=== PATIENT | female | born 1990 | race Caucasian/White ===

== ENCOUNTER 2021-06-08 14:04 | Outpatient (CLI) | payer OTHER, SELFPAY ==
--- NOTE | ~2021-06-08 | XR_ITS ---
XR hand BI arthritis min 3V 06/08/2021 14:35 Indication: Osteoarthritis. Procedure: 4 views each hand Comparison: No prior studies for comparison. Findings: No fracture, subluxation or dislocation. No erosive changes. Normal mineralization. No foca l soft tissue abnormality. No foreign bodies. Impression: 1: No significant bone or joint abnormality. Reviewed, dictated and finalized at location A. Impression: 1: No significant bone or joint abnormality.
--- NOTE | ~2021-06-08 | XR_ITS ---
LUMBAR SPINE INDICATION: Degenerative change. Low back pain. Arthritis. TECHNIQUE: 5 views lumbar spine COMPARISON: None FINDINGS: No fracture, subluxation or dislocation. No evidence for spondylolysis or spondylolisthesi s. Vertebral bodies and disk spaces are preserved. IMPRESSION: 1: No significant abnormality of the lumbar spine identified. Reviewed, dictated and finalized at location A.
--- NOTE | ~2021-06-08 | XR_ITS ---
XR sacroiliac joints min 3V 06/08/2021 14:35 Indication: Osteoarthritis Procedure: 3 views sacroiliac joints Comparison: No prior studies for comparison. Findings: Normal anatomic alignment of the sacroiliac joints. No significant degenerative change. No erosions or ankylosis. Sacral foramen are symmetric. Impression: 1: No significant abnormality of the sacroiliac joints. Reviewed, dictated and finalized at location A. Impression: 1: No significant abnormality of the sacroiliac joints.
--- NOTE | ~2021-06-08 | XR_ITS ---
XR foot RT standing 2V, XR foot LT standing 2V 06/08/2021 14:35 Indication: Osteoarthritis. Joint pain. Procedure: 2 views of each foot Comparison: No prior studies for comparison. Findings: There is mild bilateral symmetric osteoarthritis of the first MTP joints. No fracture, subl uxation or dislocation. Lisfranc joint intact. No focal soft tissue abnormality. No foreign bodies. Impression: 1: Mild bilateral symmetric osteoarthritis of the first metatarsal-phalangeal joints. Reviewed, dictated and finalized at location A. Impression: 1: Mild bilateral symmetric osteoarthritis of the first metatarsal-phalangeal j oints. Impression: 1: Mild bilateral symmetric osteoarthritis of the first metatarsal-phalangeal j oints.
== END 2021-06-08 14:05 | disposition home or self-care (01) ==
LOC: ANHIMG 14:06
PROVIDERS: PCP Internal Medicine; Visit Provider Internal Medicine
DX: M19.90 Unspecified osteoarthritis, unspecified site (principal); R19.7 Diarrhea, unspecified; M19.072 Primary osteoarthritis, left ankle and foot; M19.071 Primary osteoarthritis, right ankle and foot
CPT/HCPCS: 72110; 72202; 73130; 73620

== ENCOUNTER → 2021-10-09 14:34 | Outpatient (CLI) | payer OTHER, SELFPAY ==
--- NOTE | ~2021-10-09 | CT_ITS ---
EXAMINATION: CT abdomen w con INDICATION: Right upper quadrant and epigastric pain TECHNIQUE: Computed tomographic images of the abdomen were obtained after the administration of 100 c c of Omnipaque 350 intravenous contrast. The dose-length product (DLP) was 239.09 mGy-cm. Automated e xposure control and iterative reconstruction technique were employed. COMPARISON: None available FINDINGS: The heart size is normal. A 2 mm nodule of the left lower lobe likely reflects old granulom atous disease. The liver, spleen, pancreas, gallbladder, and adrenal glands are normal. The kidneys a re unremarkable. There are no pathologically enlarged abdominal lymph nodes. There is no free intrape ritoneal gas or evidence of bowel obstruction. A large volume of colonic stool is present. IMPRESSION: 1. No CT correlate for the patient's symptoms. 2. Constipation. Reviewed, dictated and finalized at location A. 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
--- NOTE | ~2021-10-09 | US_ITS ---
EXAMINATION: US transvaginal DATE: 10/09/2021 15:35 INDICATION: Right lower quadrant pain, irregular menstruation, unspecified TECHNIQUE: Multiple endovaginal sonographic images of the pelvis were obtained. COMPARISON: None. FINDINGS: The uterus measures 7 x 3.8 x 4.9 cm. The endometrial complex measures 9 mm. The right ovar y measures 3.7 x 3.4 x 3 cm. The left ovary measures 2.7 x 2.1 x 2.2 cm. There is normal vascular sebastián w in the ovaries. There is no free fluid in the pelvis. IMPRESSION: 1. No sonographic correlate for the patient's symptoms. Reviewed, dictated and finalized at location A. 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
== END ==
PROVIDERS: PCP Internal Medicine; Visit Provider Obstetrics & Gynecology Gynecology
DX: N92.6 Irregular menstruation, unspecified (principal); R10.31 Right lower quadrant pain; R10.13 Epigastric pain; K59.00 Constipation, unspecified
CPT/HCPCS: 74160; 76830; Q9967

== ENCOUNTER → 2022-07-03 14:42 | Outpatient (CLI) | payer OTHER, SELFPAY ==
--- NOTE | ~2022-07-03 | MR_ITS ---
EXAMINATION: MR brain/brain stem wo/w con DATE: 07/03/2022 15:27 INDICATION: Dizziness TECHNIQUE: Magnetic resonance imaging (MRI) of the brain and brainstem was performed without and with 15 mL Multihance intravenous contrast. Sequences included sagittal and axial T1-weighted SE, axial d iffusion-weighted FS SE, axial T2*-weighted GRE, axial T2-weighted FLAIR, and axial T2-weighted FSE. Postcontrast axial and coronal T1-weighted SE was obtained. Apparent diffusion coefficient (ADC) maps were created. COMPARISON: MR dated 05/03/2015 FINDINGS: There are no areas of restricted diffusion to suggest acute infarction. No intracranial hemorrhage or abnormal intracranial mass lesion. There are no intraparenchymal signal abnormalities seen on the ot her pulse sequences. The ventricles are symmetric and normal in size. There are no abnormal extra-axi al fluid collections. Flow voids are seen in the cerebral arteries on the T2-weighted sequences consi stent with their expected patency. Visualized orbits and soft tissues are unremarkable. There are no areas of abnormal enhancement on the post contrast images. IMPRESSION: 1. Normal brain MR. Reviewed, dictated and finalized at location A. ON [place]WYER IMPRESSION: 1. Normal brain MR.
== END ==
PROVIDERS: PCP Internal Medicine; Visit Provider Internal Medicine
DX: R42 Dizziness and giddiness (principal)
CPT/HCPCS: 70553; A9577

== ENCOUNTER 2022-07-06 13:03 | Emergency (ER) | payer OTHER, SELFPAY ==
[2022-07-06 13:20] VITALS: BP 117/59; PULSE 72; RESP 18; TEMP 36.4; O2SAT 100
--- NOTE | 2022-07-06 13:57 | ED.URI ---
HPI - URI/Sore Throat General Chief Complaint: Upper Respiratory Infection Stated Complaint: Sore Throat Time Seen by Provider: 07/06/22 13:57 History of Present Illness HPI Narrative: 42-year-old female presents for complaint of sore throat, body aches, headache, and fever over the last 2 days. She endorses temperature up to 104.7 at home. She is taking Tylenol and ibuprofen for symptoms. She denies nausea, vomiting, diarrhea, shortness of breath or wheezing. Related Data Home Medications Medication Instructions Recorded Confirmed ergocalciferol (vitamin D2) 1,250 1,250 mcg PO WEEKLY 11/22/21 07/06/22 mcg (50,000 unit) capsule sumatriptan succinate 50 mg tablet 50 mg PO DIRECTED 07/06/22 07/06/22 Allergies Allergy/AdvReac Type Severity Reaction Status Date / Time amoxicillin Allergy Mild Rash Verified 07/06/22 13:35 clavulanic acid Allergy Mild Rash Verified 07/06/22 13:35 naproxen Allergy Mild n/a Verified 07/06/22 13:35 Review of Systems Review of Systems: CONSTITUTIONAL: reports body aches, fever, chills, or sweats. EYES: Denies visual changes, redness, or discharge. ENT: Denies rhinorrhea, congestion, or otalgia. CARDIOVASCULAR: Denies chest pain, palpitations, or edema. RESPIRATORY: Denies dyspnea. GASTROINTESTINAL: Denies abdominal pain, vomiting, or diarrhea. SKIN: Denies rash, itching, or wounds. MUSCULOSKELETAL: Denies back pain, joint pain, or myalgia. [facility]LY [facility] Past Medical History Medical History Constipation Diarrhea Factor 5 Leiden mutation, heterozygous Granuloma annulare Headache History of blood clots Inflammatory arthritis (~05/2021) TIA (transient ischemic attack) Family History Family History Father Depression Mother Depression Spondylarthritis Grandparent Depression Rheumatoid arthritis Diabetes mellitus Grandparent Heart disease Diabetes mellitus Social History Social History Smoking status: Never smoker Alcohol intake: current Exam Narrative: GENERAL: well-appearing, no acute distress. EYES: conjunctivae clear ENT: Mucous membranes moist. TM pearly sanchez with normal light reflex bilaterally; no tragal tenderness. Oropharynx erythematous without lesions or exudate; Tonsils absent. No drooling, no hoarseness, no trismus, uvula midline. No tripod positioning, hot potato voice, or soft palate swelling. NECK: Supple. No lymphadenopathy CHEST: Clear to auscultation, breath sounds equal. No respiratory distress, speaks in full sentences. HEART: Regular rate and rhythm. No murmur heard. SKIN: Warm, dry, no rash. NEURO: Alert and oriented x3. Course Course Emergency Course: Patient is aware of diagnosis, understands and agrees to treatment plan. Anticipatory guidance given. Patient agrees to follow-up as directed and is aware of reasons to seek care at the emergency department. Portions of this record may have been created with voice recognition software Level of Care: Express Care Visit Vital Signs Vital signs: Vital Signs Temperature 97.5 F L 07/06/22 13:20 Pulse Rate 72 07/06/22 13:20 Respiratory Rate 18 07/06/22 13:20 Blood Pressure 117/59 L 07/06/22 13:20 Pulse Oximetry 100 07/06/22 13:20 Oxygen Delivery Room Air 07/06/22 13:20 Temperature 97.5 F L 07/06/22 13:20 Pulse Rate 72 07/06/22 13:20 Respiratory Rate 18 07/06/22 13:20 Blood Pressure 117/59 L 07/06/22 13:20 Pulse Oximetry 100 07/06/22 13:20 Oxygen Delivery Room Air 07/06/22 13:20 MDM - URI/Sore Throat MDM Narrative Medical decision making narrative: Positive strep result reviewed with pt. Advise supportive treatments. Patient is appropriate for outpatient treatment and follow-up. Differential Diagnosis Differential diagnosis: Likely upper respiratory infection,
== END 2022-07-06 14:15 | disposition home or self-care (01) ==
PROVIDERS: Emergency Provider Nurse Practitioner Family; PCP Internal Medicine
DX: J02.0 Streptococcal pharyngitis (principal); D68.51 Activated protein C resistance; Z86.73 Personal history of transient ischemic attack (TIA), and cerebral infarction without residual deficits
CPT/HCPCS: 87880; 99213; G0463

== ENCOUNTER 2022-10-27 10:40 | Emergency (ER) | payer OTHER, SELFPAY ==
[2022-10-27 11:26] VITALS: BP 98/48; PULSE 75; RESP 12; TEMP 36.6; O2SAT 100
--- NOTE | 2022-10-27 12:27 | ED.URI ---
HPI - URI/Sore Throat General Chief Complaint: Upper Respiratory Infection Stated Complaint: Sore Throat/Flank Pain Time Seen by Provider: 10/27/22 12:27 Source: patient, RN notes reviewed and old records reviewed Mode of arrival: ambulatory Limitations: no limitations History of Present Illness HPI Narrative: 32-year-old female presents to the [facility] with complaints of sore throat, body aches, pain since yesterday. Patient states that her other son tested positive for strep yesterday. Denies fevers. Unable to obtain if she has taken any medications or when asked about past medical history. Patient became upset that ?she has already been asked these questions. MD elicited complaint: sore throat Related Data Home Medications Medication Instructions Recorded Confirmed ergocalciferol (vitamin D2) 1,250 1,250 mcg PO WEEKLY 11/22/21 07/06/22 mcg (50,000 unit) capsule dextroamphetamine-amphetamine 10 10/27/22 mg tablet Allergies Allergy/AdvReac Type Severity Reaction Status Date / Time amoxicillin Allergy Mild Rash Verified 10/27/22 11:59 clavulanic acid Allergy Mild Rash Verified 10/27/22 11:59 naproxen Allergy Mild n/a Verified 10/27/22 11:59 Review of Systems Review of Systems: All systems reviewed & are unremarkable except as noted in HPI and below Constitutional: Constitutional: Reports as per HPI and Reports body ache(s) Eyes: Eyes: Reports no additional eye complaints ENT: Reports as per HPI Cardiovascular: Cardiovascular: Reports no additional cardiovascular complaints, Denies chest pain and Denies dyspnea Respiratory: Respiratory: Reports no additional respiratory complaints, Denies chest congestion, Denies cough and Denies dyspnea Gastrointestinal: Gastrointestinal: Reports no additional gastrointestinal complaints, Denies abdominal pain, Denies nausea and Denies vomiting Musculoskeletal: Musculoskeletal: Reports as per HPI and Reports back pain Integumentary/Breasts: Skin/Breast: Reports system reviewed and no additional complaints, except as docu Neurologic: Reports system reviewed and no additional complaints, except as documented Psychiatric: Psychiatric: Reports no additional psychiatric complaints Allergic/Immunologic: Allergic/Immunologic: Reports no additional allergic/immunologic complaints PMFSH Past Medical History Medical History Constipation Diarrhea Factor 5 Leiden mutation, heterozygous Granuloma annulare Headache History of blood clots Inflammatory arthritis (~05/2021) TIA (transient ischemic attack) Family History Family History Father Depression Mother Depression Spondylarthritis Grandparent Depression Rheumatoid arthritis Diabetes mellitus Grandparent Heart disease Diabetes mellitus Social History Social History Smoking status: Never smoker Alcohol intake: current Comments At the time of my signature, I reviewed and agree with the nursing past medical, surgical, social, and family history. There is no relevant family history pertinent to the patient complaint. Exam Const: General: comfortable, no acute distress, well developed, alert, anxious, ill appearing acutely (mild), uncomfortable and well nourished; No cooperative Nutritional Appearance: well nourished Orientation/consciousness: patient oriented x3 Limitations: no limitations HENMT: Head: normal to inspection Ears: hearing grossly normal bilaterally and external ears normal Face/Nose/Sinus: Normal external nose present, Normal nares present, Normal nasal mucous membranes and turbinates present and normal facial exam Face and sinus: normal facial exam Mouth: Yes Normal oral and palatal mucosa present, Yes lip normal and Yes moist mucous membranes Throat: uvula midline, abnormal tonsil bilateral erythema and posterior or
== END 2022-10-27 12:47 | disposition home or self-care (01) ==
PROVIDERS: Emergency Provider Nurse Practitioner; PCP Internal Medicine
DX: J02.0 Streptococcal pharyngitis (principal); D68.51 Activated protein C resistance; L92.0 Granuloma annulare; M13.80 Other specified arthritis, unspecified site; Z86.73 Personal history of transient ischemic attack (TIA), and cerebral infarction without residual deficits
CPT/HCPCS: 87880; 99213; G0463

== ENCOUNTER 2022-10-28 09:05 | Emergency (ER) | payer OTHER, SELFPAY ==
--- NOTE | ~2022-10-28 | CT_ITS ---
CT of the Abdomen and Pelvis: Indication: Epigastric pain Technique: 2.5 mm axial scans were obtained through the abdomen and pelvis following intravenous adm inistration of 100 cc of Omnipaque 350. Dose reduction technique was used on this scan by utilizing a utomated exposure control and iterative reconstruction technique. The dose-length product (DLP) was 3 81.73 mGy-cm. COMPARISON: 10/10/2019 Findings: Scans through the lung bases are unremarkable. The liver, spleen, pancreas, gallbladder, adrenals and kidneys are within normal limits. No evidence of aortic aneurysm. No lymphadenopathy. No bowel obstruction or bowel wall thickening. There is no evidence to suggest acute appendicitis. Images through the pelvis were performed. Urinary bladder unremarkable. No adnexal mass evident. Smal l amount of free fluid present in the pelvis. Impression: Small amount of free fluid in the pelvis, nonspecific. No other significant findings. Reviewed, dictated and finalized at [facility]. Impression: Small amount of free fluid in the pelvis, nonspecific. No other significant findings.
[2022-10-28 09:17] VITALS: BP 126/65; PULSE 77; RESP 14; TEMP 36.7; O2SAT 100
[2022-10-28 10:04] LABS: Basophils Percent Auto 0.4 % (0.2-1.2); Eosinophils Absolute Auto 0.1 K/mm3 (0-0.3); Eosinophils Percent Auto 1.4 % (0-4.4); Hematocrit 42.2 % (37.0-47.0); Hemoglobin 14.2 g/dL (12.0-15.0); Immature Granulocyte Absolute 0.02 K/mm3 (0.00-0.031); Immature Granulocyte Percent A 0.3 % (0-0.5); Lymphocytes Absolute Auto 1.29 K/mm3 (0.9-3.2); Lymphocytes Percent Auto 17.6 % (18.3-44.2); Mean Corpuscular HGB Conc 33.6 g/dl (32-36); Mean Corpuscular Hemoglobin 29.8 pg (26-34); Mean Corpuscular Volume 88.7 fl (80-100); Mean Platelet Volume 9.5 fl (7.4-10.4); Monocytes Absolute Auto 0.8 K/mm3 (0.1-0.6); Monocytes Percent Auto 10.2 % (2.6-8.5); Neutrophils Absolute Auto 5.2 K/mm3 (1.3-6.7); Neutrophils Percent Auto 70.1 % (45.5-73.1); Platelet Count Result 176 k/mm3 (150-375); Red Blood Count 4.76 M/mm3 (4.2-5.4); Red Cell Distribution Width 12.8 % (11.5-14.5); White Blood Count 7.3 K/mm3 (4.5-10.0)
[2022-10-28 10:06] LABS: Appearance Urine Clear (Clear); Bilirubin Urine Negative (Negative); Blood Urine Negative (Negative); Color Urine Yellow (Yellow); Glucose Urine UA Negative (Negative); Ketones Urine Negative (Negative); Leukocyte Esterase Ur Negative LEU/UL (Negative); Nitrate Urine Negative (Negative); Protein Urine Negative (Negative); Specific Grav Ur 1.003 (1.001-1.035); Urobilinogen Urine 0.2 mg/dL (<2.0); pH Urine 6.5 (5.0-9.0)
[2022-10-28 10:07] LABS: Add Urine Microscopic? NO
[2022-10-28 10:17] LABS: Alanine Aminotransferase 19 U/L (6-35); Alkaline Phosphatase 51 U/L (38-126); Anion Gap 7 mmol/L (8-16); Aspartate Amino Transferase 19 U/L (14-36); Bilirubin,Total 0.5 mg/dL (0.2-1.3); Blood Urea Nitrogen 8 mg/dL (7-17); Calcium 9.5 mg/dL (8.4-10.2); Carbon Dioxide 25 mmol/L (22-30); Chloride 107 mmol/L (98-107); Estimated CRCL calculation 96 ml/min; Estimated Glomerular Filt Rate > 60; Glucose 91 mg/dL (65-110); Lipase 80 U/L (23-300); Potassium 4.4 mmol/L (3.4-5.0); Sodium 139 mmol/L (137-145)
[2022-10-28 11:10] VITALS: BP 107/82; PULSE 80; RESP 16; O2SAT 100
--- NOTE | 2022-10-28 11:50 | ED.ABDPAIN ---
HPI - Abdominal Pain General Chief Complaint: Abdominal Pain Stated Complaint: ABD PAIN X2WKS. STREP + Time Seen by Provider: 10/28/22 11:14 Source: patient Mode of arrival: ambulatory Limitations: no limitations History of Present Illness HPI narrative: This is a 32-year-old female that presents to the emergency department for epigastric pain ongoing over the last several weeks. Reports the pain is worse with eating and at nighttime. She has not been taking anything for pain. It is a dull/achy pain. She was started on antibiotics for strep throat yesterday and her pain increased which prompted her to be seen. Denies chest pain, shortness of breath, or vomiting. Related Data Home Medications Medication Instructions Recorded Confirmed ergocalciferol (vitamin D2) 1,250 1,250 mcg PO WEEKLY 11/22/21 07/06/22 mcg (50,000 unit) capsule dextroamphetamine-amphetamine 10 10/27/22 mg tablet Allergies Allergy/AdvReac Type Severity Reaction Status Date / Time naproxen Allergy Mild n/a Verified 10/28/22 11:10 Review of Systems Review of Systems: CONSTITUTIONAL: Denies fever CARDIOVASCULAR: Denies chest pain or edema. RESPIRATORY: Denies dyspnea. GASTROINTESTINAL: Reports abdominal pain, nausea. Denies vomiting All systems reviewed & are unremarkable except as noted in HPI and below PMFSH Past Medical History Medical History Constipation Diarrhea Factor 5 Leiden mutation, heterozygous Granuloma annulare Headache History of blood clots Inflammatory arthritis (~05/2021) TIA (transient ischemic attack) Family History Family History Father Depression Mother Depression Spondylarthritis Grandparent Depression Rheumatoid arthritis Diabetes mellitus Grandparent Heart disease Diabetes mellitus Social History Social History Smoking status: Never smoker Alcohol intake: current Exam Narrative: GENERAL: Well-appearing, well-nourished, and in no acute distress. HEAD: Normocephalic, atraumatic. EYES: EOMI. CHEST: Clear to auscultation. No respiratory distress. No wheezes rales or rhonchi HEART: Regular rate and rhythm. No murmur heard. Normal peripheral pulses. ABDOMEN: Soft, nondistended, normal active bowel sounds. Mild tenderness to palpation in the epigastrium, without guarding EXTREMITIES: Normal range of motion. No edema. SKIN: Warm, dry, no rash. NEURO: No focal deficits. Alert and oriented x3. PSYCH: Normal mood and affect Course Course Emergency Course: Patient was updated on work-up. She reports relief with IV Tylenol and Protonix Vital Signs Vital signs: Vital Signs Temperature 98.0 F 10/28/22 09:17 Pulse Rate 77 10/28/22 09:17 Respiratory Rate 14 10/28/22 09:17 Blood Pressure 126/65 10/28/22 09:17 Pulse Oximetry 100 10/28/22 09:17 Oxygen Delivery Room Air 10/28/22 09:17 Temperature 98.0 F 10/28/22 09:17 Pulse Rate 80 10/28/22 11:10 Respiratory Rate 16 10/28/22 11:10 Blood Pressure 107/82 10/28/22 11:10 Pulse Oximetry 100 10/28/22 11:10 Oxygen Delivery Room Air 10/28/22 09:17 MDM - Abdominal Pain MDM Narrative Medical decision making narrative: Patient presents emergency department for epigastric abdominal pain ongoing over the last several weeks. Worse after eating and at bedtime. Also noted worsening after being started on an antibiotic recently. She is afebrile and nontoxic-appearing. Her vitals are stable. CBC is without leukocyte. Metabolic panel and lipase without concerning findings. Urine without evidence of infection. Bedside test is negative. CT scan of the abdomen and pelvis is without acute findings. Patient was updated on work-up. She reports relief with IV Tylenol and Protonix. Will be continued on PPI and instructed to follow-up with
[2022-10-28] MEDS: PANTOPRAZOLE SODIUM IV 40 MG VIAL IV PUSH (12:14)
== END 2022-10-28 14:10 | disposition home or self-care (01) ==
PROVIDERS: Emergency Medicine; Emergency Provider Physician Assistant; PCP Internal Medicine
DX: R10.13 Epigastric pain (principal); D68.51 Activated protein C resistance; Z86.73 Personal history of transient ischemic attack (TIA), and cerebral infarction without residual deficits
CPT/HCPCS: 36415; 74177; 80053; 81003; 81025; 83690; 85025; 96365; 96375; 99284; C9113; J0131; Q9967

== ENCOUNTER 2023-02-13 07:18 | Day surgery (SDC) | payer OTHER, SELFPAY ==
[2023-01-13 14:34] VITALS: BMI 25.8
[2023-01-27 13:20] VITALS: BMI 25.9
--- NOTE | 2023-02-12 12:09 | PM.HPGS ---
History of Present Illness History of Present Illness Consent: Risks, benefits, and alternatives have been discussed and questions answered. Patient agrees to proceed with procedure. Chief complaint: Epigastric Pain Narrative: Elizabeth Pascal is a 32 year old female who has been dealing with epigastric pain since October of this year. State pain started after drinking a Em and had it daily for one month. Abdominal pain is worse after eating and radiates around to her back. then was dx with strep throat and started on clindamycin and upper abdominal pain got worse. eventually followed up at [facility] for further work-up. Ct scan negative for any acute process. She was started on pantoprazole 20 mg daily that she took for appr 2 days but developed facial rash and discontinued. She has had a change in bowel habits. She has had severe constipation for which she was placed on Trulance. Then she developed looser stools. Now she has a sensation that her stool is blocked. After visit to the emergency room she was started on a PPI. She also had already been taken an antibiotic, clindamycin, strep throat and then she developed a rash therefore discontinued both of them. Review of Systems Review of Systems: All systems reviewed & are unremarkable except as noted in HPI and below PMFSH Past Medical History Medical History (Updated 01/07/23 @ 16:01 by YAN Vasquez) Abdominal pain Change in bowel movement Constipation Diarrhea Factor 5 Leiden mutation, heterozygous Family history of ulcerative colitis Granuloma annulare Headache History of blood clots Inflammatory arthritis (~05/2021) TIA (transient ischemic attack) Family History Family History Father Depression Mother Depression Spondylarthritis Grandparent Depression Rheumatoid arthritis Diabetes mellitus Grandparent Heart disease Diabetes mellitus Social History Social History Smoking status: Never smoker Alcohol intake: current Alcohol use details: rarely Substance use: never Substance use type: does not use Living arrangements: with family Spiritual care concerns: No Meds Home Medications and Allergies Home Medications Medication Instructions Recorded Confirmed Type ergocalciferol (vitamin D2) 1,250 1,250 mcg PO WEEKLY 01/27/23 02/13/23 History mcg (50,000 unit) capsule ubrogepant 100 mg tablet (Ubrelvy) 100 mg PO PRN PRN Migraine Headache 01/27/23 02/13/23 History Allergies Allergy/AdvReac Type Severity Reaction Status Date / Time No Known Allergies Allergy Verified 02/13/23 07:51 Exam Const: General: alert Orientation/consciousness: patient oriented x3 Resp: Auscultation: clear to auscultation bilaterally Cardio: Rhythm: regular rhythm GI: GI Palp: Yes Soft to palpation and No Tenderness to palpation present (GI) Neuro: General: patient oriented x3 Assessment and Plan Assessment and plan (1) Abdominal pain: Code(s): R10.9 - Unspecified abdominal pain Status: Acute Assessment and Plan: EGD with possible biopsy or dilatation or cautery. (2) Change in bowel movement: Code(s): R19.8 - Other specified symptoms and signs involving the digestive system and abdomen Status: Acute Assessment and Plan: Colonoscopy with possible biopsy or polypectomy or cautery or injection of substances.
--- NOTE | 2023-02-12 12:54 | P.PNAN_ITS ---
Anes - Initial Pre Proc Eval Procedure: Operation Date: 02/13/23 09:00 Proposed Procedures p Esophagogastroduodenoscopy - Jg Simental MD s Diagnostic Colonoscopy - Jg Simental MD Date/Time: 02/12/23 12:54 Surgeon: Jg Simental MD Pre Op Diagnosis: Epigastric Pain Patient Data Age: 32 Gender: F Height: 1.7 m Weight: 75 kg Allergies Allergy/AdvReac Type Severity Reaction Status Date / Time No Known Allergies Allergy Verified 02/13/23 07:51 Home Medications Medication Instructions Recorded Confirmed Type ergocalciferol (vitamin D2) 1,250 1,250 mcg PO WEEKLY 01/27/23 02/13/23 History mcg (50,000 unit) capsule ubrogepant 100 mg tablet (Ubrelvy) 100 mg PO PRN PRN Migraine Headache 01/27/23 02/13/23 History Patient hx anesthesia problems: none Family hx anesthesia problems: none Results Review: All pre-operative results and documents have been reviewed as part of the pre- operative evaluation. [facility] Past Medical History Medical History (Updated 01/07/23 @ 16:01 by YAN Vasquez) Abdominal pain Change in bowel movement Constipation Diarrhea Factor 5 Leiden mutation, heterozygous Family history of ulcerative colitis Granuloma annulare Headache History of blood clots Inflammatory arthritis (~05/2021) TIA (transient ischemic attack) Family History Family History Father Depression Mother Depression Spondylarthritis Grandparent Depression Rheumatoid arthritis Diabetes mellitus Grandparent Heart disease Diabetes mellitus Social History Social History Smoking status: Never smoker Alcohol intake: current Alcohol use details: rarely Substance use: never Substance use type: does not use Living arrangements: with family Spiritual care concerns: No Anes - Eval Final PreProcedure Day of Procedure 02/12/23 12:54 Patient weight: normal Heart: regular rate and rhythm Lungs: clear to auscultation and normal air movement Airway: Mallampati scale class II Neurological: alert and oriented Last oral intake: >/= 8 hours ASA classification: II Emergent: no Anesthetic plan: proceed Anesthesia type and monitoring: general GIVS Results Review: All pre-operative results and documents have been reviewed as part of the pre- operative evaluation. Informed Consent: The patient's anesthetic plan and its attendant risks and benefits were discussed with the patient/family/POA. Questions were solicited and answers provided to the satisfaction of the patient/family/POA.
[2023-02-13 07:47] VITALS: BP 100/60; PULSE 75; RESP 14; TEMP 36.6; O2SAT 99
[2023-02-13] MEDS: LACTATED RINGERS 1,000 ML 150 ML IV CONT (08:04)
[2023-02-13 09:27] VITALS: BP 92/53; PULSE 60; RESP 14; O2SAT 100
[2023-02-13 09:38] VITALS: BP 99/63; PULSE 60; RESP 16; O2SAT 100
[2023-02-13 09:48] VITALS: BP 95/56; PULSE 65; RESP 18; O2SAT 100
--- NOTE | 2023-02-13 10:36 | WPDANESPN ---
Anes - Prog Note Post-Op Date/Time: 02/13/23 10:36 Cardiovascular status: normal Respiratory status: normal Airway patency: baseline Mental status: baseline Post-Op hydration status: normal Vital Signs: Last Vital Signs Temp 36.6 C 02/13/23 07:47 Pulse 65 02/13/23 09:48 Resp 18 02/13/23 09:48 BP 95/56 L 02/13/23 09:48 Pulse Ox 100 02/13/23 09:48 O2 Del Method Room Air 02/13/23 09:48 Pain Score (VAS): 0 I/O: Intake & Output 02/12/23 02/13/23 02/13/23 23:59 07:59 15:59 Intake Total 500 Balance 500 Post-procedural complaints: none Patient Feedback: Patient satisfied with anesthetic care.
== END 2023-02-13 10:10 | disposition home or self-care (01) ==
PROVIDERS: PCP Internal Medicine; Visit Provider Internal Medicine Gastroenterology
PROC: 0DJ08ZZ Inspection of Upper Intestinal Tract, Via Natural or Artificial Opening Endoscopic (ICD-10-PCS; CPT 43235; principal; 2023-02-13 09:00)
PROC: 0DJD8ZZ Inspection of Lower Intestinal Tract, Via Natural or Artificial Opening Endoscopic (ICD-10-PCS; CPT 45378; 2023-02-13 09:00)
DX: R19.8 Other specified symptoms and signs involving the digestive system and abdomen (principal)
CPT/HCPCS: 45378; 43239

== ENCOUNTER 2023-02-13 09:00 | Outpatient (NON) | payer OTHER, SELFPAY | END 2023-02-13 09:01 | disposition home or self-care (01) | PROVIDERS: PCP Internal Medicine; Visit Provider Internal Medicine Gastroenterology | DX: Z83.79 Family history of other diseases of the digestive system (principal) | CPT/HCPCS: 88305 ==

== ENCOUNTER 2023-06-18 15:26 | Emergency (ER) | payer OTHER, SELFPAY ==
--- NOTE | 2023-06-18 15:36 | ED.URI ---
HPI - URI/Sore Throat General Chief Complaint: Upper Respiratory Infection Stated Complaint: cough,throat irritation Source: patient and RN notes reviewed Mode of arrival: ambulatory Limitations: no limitations History of Present Illness HPI Narrative: 33-year-old female presented for complaint of nasal drainage, cough productive of green sputum. Onset 3 days. Reports the left eye is red and sore, and had crust and drainage to eyes today. 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 Also reports migraine daily for almost one week. Denies wheezing, lethargy, nausea, vomiting, diarrhea, fevers or chills. 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 MD elicited complaint: cough Related Data Home Medications Medication Instructions Recorded Confirmed ergocalciferol (vitamin D2) 1,250 1,250 mcg PO WEEKLY 01/27/23 02/13/23 mcg (50,000 unit) capsule ubrogepant 100 mg tablet (Ubrelvy) 100 mg PO PRN PRN Migraine Headache 01/27/23 02/13/23 dextroamphetamine-amphetamine 10 06/18/23 mg tablet Allergies Allergy/AdvReac Type Severity Reaction Status Date / Time No Known Allergies Allergy Verified 06/18/23 15:28 Review of Systems Review of Systems: CONSTITUTIONAL: Endorses malaise, denies chills, sweats, fever EYES: Denies visual changes Reports redness, discharge ENT: Reports rhinorrhea, congestion, sinus pain, denies otalgia, sore throat CARDIOVASCULAR: Denies chest pain, palpitations, edema RESPIRATORY: Reports cough, post nasal drainage. Denies dyspnea GASTROINTESTINAL: Denies abdominal pain, nausea, vomiting, diarrhea SKIN: Denies rash or itching MUSCULOSKELETAL: Endorses myalgia NEUROLOGIC: Endorses headache PMFSH Past Medical History Medical History Abdominal pain Change in bowel movement Constipation Diarrhea Factor 5 Leiden mutation, heterozygous Family history of ulcerative colitis Granuloma annulare Headache History of blood clots Inflammatory arthritis (~05/2021) TIA (transient ischemic attack) Surgical History Surgical History History of tonsillectomy Family History Family History Father Depression Mother Depression Spondylarthritis Grandparent Depression Rheumatoid arthritis Diabetes mellitus Grandparent Heart disease Diabetes mellitus Social History Social History Smoking status: Never smoker Alcohol intake: current Alcohol use details: rarely Substance use: never Substance use type: does not use Living arrangements: with family Spiritual care concerns: No Exam Narrative: GENERAL: mildly Ill-appearing, nontoxic no acute distress. HEAD: Normocephalic EYES: PERRLA, EOMI, mild left conjunctival injection and clear drainage; no swelling. ENT: Mucous membranes moist. nasal congestion. TM pearly sanchez with dull light reflex bilaterally; no tragal tenderness. Oropharynx without lesions or exudate, Tonsils absent, no drooling, no hoarseness, no trismus, uvula midline. No tripod positioning, muffled voice, soft palate or pharyngeal wall bulging NECK: Supple. No lymphadenopathy CHEST: Clear to auscultation, breath sounds equal. No wheezing, rhonchi, rales, or stridor. No respiratory distress, speaks in full sentences. HEART: Regular rate and rhythm. No murmur heard. SKIN: Warm, dry, no rash. NEURO: Alert and oriented x3. PSYCH: Normal mood and affect Course Course Emergency Course: Patient is aware of diagnosis, understands and agrees to treatment plan. Anticipatory guidance given. Patient agrees to follow-up as directed and is aware of reasons to seek care at the emergency department. Portions of this record may have been created with voice recognition software
[2023-06-18 15:38] VITALS: BP 111/50; PULSE 97; RESP 16; TEMP 36.8; O2SAT 100
[2023-06-18 15:43] VITALS: BP 111/50; PULSE 97; RESP 16; TEMP 36.8; O2SAT 100
== END 2023-06-18 16:20 | disposition home or self-care (01) ==
PROVIDERS: Emergency Provider Nurse Practitioner Family; PCP Internal Medicine
DX: J06.9 Acute upper respiratory infection, unspecified (principal); Z20.822 Contact with and (suspected) exposure to COVID-19; M13.80 Other specified arthritis, unspecified site; Z86.73 Personal history of transient ischemic attack (TIA), and cerebral infarction without residual deficits; D68.51 Activated protein C resistance
CPT/HCPCS: 87426; 99213; C9803; G0463

== ENCOUNTER → 2023-09-09 10:30 | Outpatient (CLI) | payer OTHER, SELFPAY ==
--- NOTE | ~2023-09-09 | MMUS_ITS ---
EXAMINATION: MM diagnostic claudia BI w dara, US breast BI complete HISTORY: Palpable left breast abnormality TECHNIQUE: Additional 3-D tomosynthesis images of the breasts were performed and synthetic 2-D images were generated. CAD analysis was submitted and interpreted. High resolution bilateral complete breas t ultrasound was performed. COMPARISON: None BREAST PARENCHYMAL COMPOSITION: The breasts are extremely dense, which lowers the sensitivity of mamm ography FINDINGS: MAMMOGRAPHIC FINDINGS: There are no suspicious masses, calcifications or architectural distortion in either breast to sugges t malignancy. ULTRASOUND: Complete bilateral US of all 4 quadrants of the breasts and retroareolar region was reviewed. Normal heterogeneous echotexture without focal solid or cystic mass. IMPRESSION: 1. No evidence for malignancy in either breast. 2. Routine yearly screening mammogram and regular clinical breast examination are recommended. BI-RADS Category 1: Negative Reviewed, dictated and finalized at location A. [employer]SF[employer] STUDENTS IMPRESSION: 1. No evidence for malignancy in either breast. 2. Routine yearly screening mammogram and regular clinical breast examination a re recommended. BI-RADS Category 1: Negative
== END ==
PROVIDERS: PCP Obstetrics & Gynecology Gynecology; Visit Provider Obstetrics & Gynecology Gynecology
DX: N63.20 Unspecified lump in the left breast, unspecified quadrant (principal)
CPT/HCPCS: 76641; 77062; 77066; G0279

== ENCOUNTER → 2023-09-09 10:32 | Outpatient (CLI) | payer OTHER, SELFPAY ==
--- NOTE | ~2023-09-09 | US_ITS ---
EXAMINATION: US pelvic complete DATE: 09/09/2023 12:08 INDICATION: pelvic pain TECHNIQUE: Multiple transabdominal sonographic images of the pelvis were obtained. COMPARISON: 10/09/2021; CT abdomen pelvis 10/28/2022. FINDINGS: Uterus: Retroverted, 9.5 x 4.6 x 5.7 cm. Endometrial complex measures 16 mm. Right Ovary: 3.9 x 1.8 x 2.3 cm. Vascular flow is present. No adnexal mass. Left Ovary: 2.7 x 1.9 x 2.5 cm. Vascular flow is present. No adnexal mass. There is physiologic free fluid in the pelvis. IMPRESSION: Normal transabdominal pelvic sonogram findings. 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
== END ==
PROVIDERS: PCP Nurse Practitioner; Visit Provider Nurse Practitioner
DX: R10.2 Pelvic and perineal pain (principal)
CPT/HCPCS: 76856

== ENCOUNTER 2025-06-27 08:20 | Outpatient (CLI) | payer OTHER, SELFPAY ==
--- NOTE | ~2025-06-27 | US_ITS ---
Examination: US abdomen complete Clinical History: Unspecified abdominal pain . Comparison: CT abdomen pelvis 10/28/2022 Technique: Complete abdominal sonography Findings: Liver: Normal size. Normal echotexture. No intrahepatic biliary ductal dilatation. Normal hepatopedal flow main portal vein. Common duct: Normal caliber, 2 mm. Gallbladder: No stones. No wall thickening. No pericholecystic fluid. Spleen: Unremarkable. Pancreas: Unremarkable. Kidneys: Unremarkable. Aorta: No aneurysmal dilatation. Retrohepatic IVC: Unremarkable. IMPRESSION: 1. No acute findings. Reviewed, dictated and finalized at location R. 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 No acute findings.
== END 2025-06-27 08:21 | disposition home or self-care (01) ==
LOC: MICIMG 08:21
DX: R10.9 Unspecified abdominal pain (principal)
CPT/HCPCS: 76700